=== PATIENT | female | born 1990 | race Caucasian/White ===

== ENCOUNTER → 2018-12-15 10:55 | Outpatient (CLI) | payer OTHER, SELFPAY ==
[2018-12-17 11:41] LABS: HPV Reflexed? NOT INDICATED
== END ==
PROVIDERS: Referring Provider Obstetrics & Gynecology; Visit Provider Obstetrics & Gynecology
DX: Z12.4 Encounter for screening for malignant neoplasm of cervix (principal)
CPT/HCPCS: 87624; 88175; G0145

== ENCOUNTER → 2019-01-13 16:14 | Outpatient (CLI) | payer SELFPAY ==
[2019-01-13 19:50] LABS: Chlamydia Trachomatis by PCR Negative (Negative); Neisserai gonorrhoeae by PCR Negative (Negative); Probe Check PASS; Sample Adequacy Control PASS; Specimen Processing Control PASS
== END ==
PROVIDERS: Visit Provider Obstetrics & Gynecology
DX: Z11.3 Encounter for screening for infections with a predominantly sexual mode of transmission (principal)
CPT/HCPCS: 87491; 87591

== ENCOUNTER → 2019-02-03 16:47 | Outpatient (CLI) | payer SELFPAY ==
[2019-02-03 17:53] LABS: Color, Urine Yellow (Yellow); Glucose, Dipstick Normal (Normal); Ketone-Dipstick Negative (Negative); Leukocyte Esterase-Dipstick 25 /ul (Negative); Nitrite-Dipstick Negative (Negative); Occult Blood-Urine Negative /ul (Negative); Protein-Dipstick Negative (Negative); Urine Bilirubin Dipstick Negative (Negative); Urine Clarity Clear (Clear); Urine Urobilinogen Normal (Normal)
[2019-02-03 18:00] LABS: Absolute Lymphocyte Count 1.81 X10^3/ul (0.83-4.51); Absolute Neutrophil Count 7.4 X10^3/uL (2.0-7.7); Basophil# 0.03 X10^3/uL; Basophil% 0.3 % (0-1); Eosinophil# 0.29 X10^3/uL; Eosinophils% 2.9 % (0-5); Hematocrit 38.1 % (37-47); Hemoglobin 13.1 g/dl (12.0-15.0); Lymphocyte # 1.81 X10^3/ul (4.0); Lymphocyte % 18.1 % (19-41); Mean Corp Hgb Conc 34.4 g/gl (32-36); Mean Corpuscular Hgb 30.2 pg (27.0-32.0); Mean Corpuscular Volume 87.8 fL (81-99); Mean Platelet Vol. 9.7 fl (6.2-12.0); Monocyte# 0.47 X10^3/uL; Monocyte% 4.7 % (0-10); Neutrophil # 7.39 X10^3/uL (2.7-7.7); Neutrophil % 73.8 % (47-70); Platelet Count 223 K/mm3 (150-450); RBC Distribution Width CV 13.2 % (11.6-14.6); RBC Distribution Width SD 42.6 fl (35.1-43.9); Red Blood Count 4.34 M/mm3 (4.2-5.4)
[2019-02-03 18:02] LABS: POSITIVE COUNT NO; POSITIVE DIFFERENTIAL NO; POSITIVE MORPHOLOGY NO
[2019-02-03 18:20] LABS: Amphetamine Urine VISTA NEGATIVE (<1000 ng/mL); Barbiturate Urine VISTA NEGATIVE (< 200 ng/mL); Benzodiazepine Urine VISTA NEGATIVE (< 200 ng/mL); Cocaine Urine VISTA NEGATIVE (< 300 ng/mL); Ecstacy Urine VISTA NEGATIVE (< 500 ng/mL); Methadone Urine VISTA NEGATIVE (< 300 ng/mL); PCP Urine VISTA NEGATIVE (< 25 ng/mL); THC Urine VISTA NEGATIVE (< 50 ng/mL); Vista UDS pH Range 6
[2019-02-03 19:04] LABS: Thyroid Stim Hormone (TSH) 3.27 uIU/mL (0.358-3.74)
[2019-02-03 19:42] LABS: HIV - WCH Non-Reactive (Nonreactive); Rubella IgG 343.2 IU/mL
[2019-02-03 20:22] LABS: Prenatal RPR NONREACTIVE (NONREACTIVE)
[2019-02-06 09:15] LABS: HEPATITIS B SURFACE AG Negative (Negative); Hep C Antibodies <0.1 s/co ratio (0.0-0.9)
[2019-02-07 13:48] LABS: Free T3 2.5 pg/mL (2.18-3.98); T4 Free Direct 0.91 ng/dL (0.76-1.46)
== END ==
PROVIDERS: Visit Provider Obstetrics & Gynecology
DX: Z34.81 Encounter for supervision of other normal pregnancy, first trimester (principal)
CPT/HCPCS: 36415; 80307; 81002; 84439; 84443; 84481; 85025; 86703; 86762; 86803; 87340

== ENCOUNTER → 2019-08-09 15:45 | Outpatient (CLI) | payer SELFPAY | PROVIDERS: Visit Provider Obstetrics & Gynecology | DX: Z34.83 Encounter for supervision of other normal pregnancy, third trimester (principal); Z36.85 Encounter for antenatal screening for Streptococcus B | CPT/HCPCS: 87081 ==

== ENCOUNTER 2019-09-01 08:50 | Outpatient (CLI) | payer SELFPAY ==
[2019-09-01 09:02] VITALS: BMI 25.7
--- NOTE | 2019-09-03 03:31 | OB.TRI.NOTE ---
History of Present Illness Reason For Visit: R/O LABOR Allergies No Known Allergies Allergy (Verified 09/02/19 14:43)
--- NOTE | 2019-09-04 14:49 | OB.TRI.HP_ITS ---
History of Present Illness Date of Service: 09/01/19 Was patient seen by the physician?: No Reason For Visit: R/O LABOR Date of Service: 09/01/19 Final PJ: 09/05/19 Final PJ Source: US <20 weeks Gestational age: 39 Weeks and 3 Days History of Present Illness: This is a late entry for 09/01/19 1100 28yo presents to L&D c/o contractions Allergies No Known Allergies Allergy (Verified 09/02/19 14:43) Physical Exam Cervix Dilation (cm): 1.5 - Exam per RN Station: -3 NST - FHR Rate Baby A Baseline: 135 Variability:: Moderate Accelerations:: 15 x 15 Decelerations:: None NST Reactive:: Yes FHR Category:: Category I Uterine Activity:: Irregular Impression/Plan Assessment: 28yo G1Po at 39w3d gestation r/o labor Cat 1 FHTs No cervical electronic data interchange specialist 2 hours after walking Plan: Discharge home with labor precautions, FM counts, increased rest and fluids
== END 2019-09-01 13:15 | disposition home or self-care (01) ==
LOC: WPOUT 08:56 → OBT 09:15
PROVIDERS: Referring Provider Obstetrics & Gynecology; Visit Provider Obstetrics & Gynecology
DX: O62.9 Abnormality of forces of labor, unspecified (principal); Z3A.39 39 weeks gestation of pregnancy
CPT/HCPCS: 59025; 59050; 99218; G0378

== ENCOUNTER 2019-09-02 14:55 | Inpatient (IN) | payer SELFPAY ==
[2019-09-01 09:02] VITALS: BMI 25.7
[2019-09-02 14:42] VITALS: BMI 25.1
--- NOTE | 2019-09-02 14:46 | HP.PCM_ITS ---
History and Physical Date of Admission: 09/02/19 HISTORY AND PHYSICAL History of this : 28 yo female Ab0 with EDC 09/05/2019 by Ultrasound, presents to Labor and Delivery with CC of contractions, pain. 39 4/7 wk EGA care remarkable for GBS negative. A positive Rubella immune. 1.) Subclinical hypothyroidism - rpt TSH at 28wga 2.) has two cousins with Down Syndrome, Pt has an nephew with unknown developmental delays - special needs/tube feedings, 3.) msAFP and CF testing declined 4.) Plans office and childbirth classes Pertinent Past Medical History: None. Allergies: NKDA Medications: During - No Meds; 28 mg iron-800 mcg tablet Review of Systems: Non-contributory PAST HISTORY: Breast/Ovarian/Colon Cancers - Denies Infections - Chicken pox Illnesses - no serious past illnesses Accidents - None History of Abnormal PAPS - Denies Hospitalizations - see surgery SURGICAL HISTORY: 1. [place] teeth removed 2. 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 Impression /Plan: Intrauterine . 39 4/7 wk EGA G1PO female. Early labor.Admit. Plans epidural. Watch progress, AROM when comfortable.
[2019-09-02] MEDS: Lactated Ringers 500 ML 999 ML IV ×2 (15:10→17:04)
[2019-09-02 15:24] LABS: Absolute Lymphocyte Count 0.97 X10^3/uL (0.83-4.51); Absolute Neutrophil Count 12.4 X10^3/uL (2.0-7.7); Basophil# 0.02 X10^3/uL; Basophil% 0.1 % (0-1); Eosinophil# 0.02 X10^3/uL; Eosinophils% 0.1 % (0-5); Hematocrit 37.1 % (37-47); Hemoglobin 12.9 g/dL (12.0-15.0); Lymphocyte # 0.97 X10^3/ul (4.0); Lymphocyte % 6.9 % (19-41); Mean Corp Hgb Conc 34.8 g/dL (32-36); Mean Corpuscular Hgb 30.4 pg (27.0-32.0); Mean Corpuscular Volume 87.5 fL (81-99); Mean Platelet Vol. 9.8 fl (6.2-12.0); Monocyte# 0.66 X10^3/uL; Monocyte% 4.7 % (0-10); NRBC Flagged by Analyzer 0 % (0-5); Neutrophil # 12.37 X10^3/uL (2.7-7.7); Neutrophil % 87.9 % (47-70); Platelet Count 207 K/mm3 (150-450); RBC Distribution Width CV 13.5 % (11.6-14.6); RBC Distribution Width SD 42.9 fl (35.1-43.9); Red Blood Count 4.24 M/mm3 (4.2-5.4); White Blood Count 14.1 K/mm3 (4.4-11.0)
[2019-09-02] MEDS: Lactated Ringers 1,000 ML 50 ML IV (15:40)
[2019-09-02] MEDS: fentaNYL-bupivacaine (epidural) 100 ML BAG EPIDURAL ×2 (16:40→20:53)
--- NOTE | 2019-09-02 18:16 | PN.OBGYN_ITS ---
Subjective: Comfortable with epidural; states feels dizzy and slightly nauseas when lying on her back, so prefers to lie on her side; requests AROM; at bedside and supportive Objective: AVSS FHTs:120 baseline, mod variability, with accels, no decels UCs: Q 2-5 - Physical Exam General: Alert, Oriented x3, Cooperative HEENT: PERRLA, EOMI Oral: Moist Mucosa Neck: Supple Neurological: Cranial nerves II-XII grossly intact Psych/Mental Status: Normal Affect, Appropriate, Alert and oriented to time, place, person, mood and affect Weight: 146 lb 6.4 oz Body Mass Index (BMI) 25.1 Intake and Output for Last 24 Hours 08/31/19 09/01/19 09/02/19 23:59 23:59 23:59 Intake Total 321.45 / 321.45 Balance 321.45 / 321.45 Laboratory Tests Past 24 Hrs 09/02/19 09/02/19 15:10 15:10 WBC 14.1 H RBC 4.24 Hgb 12.9 Hct 37.1 MCV 87.5 MCH 30.4 MCHC 34.8 RDW Std Deviation 42.9 RDW Coeff of Tabatha 13.5 Plt Count 207 MPV 9.8 Immature Gran % (Auto) 0.300 Neut % (Auto) 87.9 H Lymph % (Auto) 6.9 L [place] % (Auto) 4.7 Eos % (Auto) 0.1 Baso % (Auto) 0.1 Absolute Neuts (auto) 12.4 H Absolute Lymphs (auto) 0.97 Nucleated RBC % 0 Blood Type A POSITIVE Antibody Screen NEGATIVE Medical Necessity - Tobacco Use Smoking Status: Former smoker Assessment/Plan Assessment: 28 yo female Ab0 with EDC 09/05/2019 by Ultrasound, in spontaneous labor at 39 4/7 wk EGA GBS negative Cat 1 FHTs Plan: AROMed for moderate amount of clear fluid Continuous monitoring Close observation Anticipate vaginal delivery
[2019-09-02] MEDS: Ondansetron 4 MG/2 ML Vial IV (23:20)
[2019-09-03] MEDS: Lactated Ringers 500 ML 999 ML IV ×2 (00:32→02:36)
--- NOTE | 2019-09-03 01:46 | PN.OBGYN_ITS ---
Subjective: Comfortable with epidural, feeling pressure and urge to push; bedside and supportive Objective: FHTs: 120 baseline, moderate variability, with accels, no decels UCs: Q 2-3 VE: 10/100/+1 - Physical Exam General: Alert, Oriented x3, Cooperative, No apparent distress HEENT: PERRLA, EOMI Oral: Moist Mucosa Neck: Supple Neurological: Cranial nerves II-XII grossly intact Psych/Mental Status: Normal Affect, Appropriate, Alert and oriented to time, place, person, mood and affect Weight: 146 lb 6.4 oz Body Mass Index (BMI) 25.1 Intake and Output for Last 24 Hours 09/01/19 09/02/19 09/03/19 23:59 23:59 23:59 Intake Total 514.78 / 514.78 573.33 / 573.33 Balance 514.78 / 514.78 573.33 / 573.33 Laboratory Tests Past 24 Hrs 09/02/19 09/02/19 15:10 15:10 WBC 14.1 H RBC 4.24 Hgb 12.9 Hct 37.1 MCV 87.5 MCH 30.4 MCHC 34.8 RDW Std Deviation 42.9 RDW Coeff of Tabatha 13.5 Plt Count 207 MPV 9.8 Immature Gran % (Auto) 0.300 Neut % (Auto) 87.9 H Lymph % (Auto) 6.9 L [place] % (Auto) 4.7 Eos % (Auto) 0.1 Baso % (Auto) 0.1 Absolute Neuts (auto) 12.4 H Absolute Lymphs (auto) 0.97 Nucleated RBC % 0 Blood Type A POSITIVE Antibody Screen NEGATIVE Medical Necessity - Tobacco Use Smoking Status: Former smoker Assessment/Plan Assessment: 28 yo female Ab0 with EDC 09/05/2019 by Ultrasound, in spontaneous labor at 39 57 wk EGA GBS negative 2nd stage labor, pushing with moderate progress with contractions Cat 1 FHTs Plan: Continue pushing Close observation Anticipate vaginal
--- NOTE | 2019-09-03 02:39 | PN.OBGYN_ITS ---
Subjective: Comfortable with epidural; feeling minimal pressure now; has tried several pushing techniques, tug-of-war, etc. Objective: AVSS - afebrile FHTs: 190s, minimal variability UCs: Q 2-3 Cervix: unchanged - Physical Exam Psych/Mental Status: Normal Affect, Appropriate, Alert and oriented to time, place, person, mood and affect Weight: 146 lb 6.4 oz Body Mass Index (BMI) 25.1 Intake and Output for Last 24 Hours 09/01/19 09/02/19 09/03/19 23:59 23:59 23:59 Intake Total 1014.78 / 1014.78 573.33 / 573.33 Balance 1014.78 / 1014.78 573.33 / 573.33 Laboratory Tests Past 24 Hrs 09/02/19 09/02/19 15:10 15:10 WBC 14.1 H RBC 4.24 Hgb 12.9 Hct 37.1 MCV 87.5 MCH 30.4 MCHC 34.8 RDW Std Deviation 42.9 RDW Coeff of Tabatha 13.5 Plt Count 207 MPV 9.8 Immature Gran % (Auto) 0.300 Neut % (Auto) 87.9 H Lymph % (Auto) 6.9 L [place] % (Auto) 4.7 Eos % (Auto) 0.1 Baso % (Auto) 0.1 Absolute Neuts (auto) 12.4 H Absolute Lymphs (auto) 0.97 Nucleated RBC % 0 Blood Type A POSITIVE Antibody Screen NEGATIVE Medical Necessity - Tobacco Use Smoking Status: Former smoker Assessment/Plan Assessment: 28 yo female Ab0 with EDC 09/05/2019 by Ultrasound, in spontaneous labor at 39 5/7 wk EGA GBS negative 2nd stage labor, minimal progress with pushing Cat 2 FHTs Plan: Labor down 500ml LR bolus O2 10L per FM Consult with MD if FHTs elevated >30 minutes
[2019-09-03] MEDS: fentaNYL-bupivacaine (epidural) 100 ML BAG EPIDURAL (02:49)
--- NOTE | 2019-09-03 03:26 | PCM.PN.BLA ---
Progress Note LABOR PROGRESS NOTE Epidural in place. Feeling pressure AFEB VSS IFM: with pushing FHR in 180-190s deep variables with pushing. Now without pushing FHR with increased variability. 150-160s with avg variability, Accels to 180s and quick variable to 120s (less than 10 sec) with some early decelerations. UCs q 2-3 mins EXAM: complete with small caput noted. AGA fetus. Pelvis adequate A/P: 39 4/7 wk Spontaneous labor. Progressed to complete and pushing with intolerance at present to pushing. Labor down. Doesn't lie on her back. Recommend side lying positions rather than high sierra's to assist further descent, rotation.
[2019-09-03] MEDS: Lactated Ringers 1,000 ML 200 ML IV (03:57)
[2019-09-03] MEDS: Oxytocin 30 units/NS 500 ml 30 UNITS/500 ML IV.SOLN 334 UNITS IV (06:25)
--- NOTE | 2019-09-03 07:25 | PCM.OPRPT ---
Vaginal Delivery Maternal Presentation: Active Labor Amniotic Membrane Rupture Type: Artificial Rupture of Membrane time: 09/02/19 at 1803 Amniotic Fluid Description: Clear Final PJ: 09/05/19 Final PJ Source: US <20 weeks Gestational age: 39 Weeks and 6 Days doctor who attended delivery (if requested by OB): Aubrie Mccartney Date of Procedure: 09/03/19 Pre-Operative Diagnosis: IUP at 39w4d active labor Post-Operative Diagnosis: Surgery/ Procedure Performed: Spontaneous Vaginal Delivery Type of Anesthesia: Epidural Description of Procedure: CTSP when she was /+1; she pushed with minimal progress until tachycardia resulted in stopping pushing efforts for an extended period of laboring down; FHTs recovered, and pt began to push again with slow but steady progress, delivering a viable female over an intact perineum, OA to ALFONSO; shoulders followed easily and infant was placed on mother's abdomen, dried, stimulated, bulb-suctioned, cord clamped x 2 and cut by provider; as infant was not initially vigorous, she was handed over to waiting switchboard operator, examined, and quickly returned her mother; APGARS 8/9; placenta delivered spontaneously, Shan mechanism, intact, 3-vessel cord, central insertion. First degree vaginal laceration repaired with 3-0 Vicryl, good hemostasis obtained; Venous cord gases obtained, unable to obtain arterial gases; EBL 250ml Instrument, lap and raytec counts correct x 2 with RN Presentation: Vertex, ALFONSO Placental Delivery Description: Spontaneous Cord Vessel Description: 3 Vessels Cord Gases drawn per routine: ABG - Only able to obtain venous sample Cord Entanglement: None Estimated Blood Loss: 250
--- NOTE | 2019-09-03 07:44 | DCINST_ITS ---
Discharge Diet: No Restrictions Discharge Activity: Return to Normal Activity, No Restrictions, May Drive, May Shower, May Take a Tub Bath Return to work on:: 10/17/19 May resume sexual activity in: 6-8 weeks Weight Bearing Status: Weight bearing as tolerated Lifting Restrictions: Nothing heavier than the baby for two weeks Additional Activity Instructions:: No cleaning, cooking, shopping for two weeks; no long car rides for two weeks Additional Instructions: If you experience any of the following, contact your healthcare provider. * Bleeding that soaks a pad every hour for 2 hours * Fever 100.4 or higher * Unrelieved incision or abdominal pain * Swelling, redness, discharge or bleeding from your incision or episiotomy site * Your incision begins to separate * Problems urinating (including inability to urinate or burning while urinating). * Visual changes * Severe headache * Flu-like symptoms * Pain or redness in one of both of your breasts * Pain, warmth, tenderness or swelling in your legs, especially the calf area * Frequent nausea and vomiting * Symptoms of depression or anxiety If you experience any of the following, call 911 or go to the nearest Emergency Room. * Chest pain * Problems breathing * Seizure activity * Partial or complete paralysis of a body part, slurred speech, weakness or drooping of the face, or a sudden inability to walk or hold your balance Allergies/Adverse Reactions: Allergies No Known Allergies Allergy (Verified 09/02/19 14:43) Medications to take at Discharge Pnv No.95/Ferrous Fum/Folic AC [ Caplet] 1 cap PO DAILY 09/01/19 Please Follow Up With: Jordan Armas MD When: Six weeks for visit Primary Care Physician: Care Physician,No Primary [Primary Care Provider] - Test Results: Test results from this visit will be discussed in further detail at your follow- up appointment, if applicable.
[2019-09-03] MEDS: Ibuprofen 600 MG Tablet PO ×2 (07:48→15:03)
[2019-09-03 12:54] VITALS: BP 113/56; PULSE 68; RESP 16; TEMP 36.3; O2SAT 98
[2019-09-03 16:10] VITALS: BP 109/58; PULSE 82; RESP 16; TEMP 36.6
[2019-09-03 20:46] VITALS: BP 118/71; PULSE 84; RESP 16; TEMP 36.7; O2SAT 98
[2019-09-04] MEDS: Ibuprofen 600 MG Tablet PO ×3 (00:33→18:53)
[2019-09-04 00:54] VITALS: BP 106/55; PULSE 68; RESP 16; TEMP 36.9; O2SAT 98
[2019-09-04 02:43] VITALS: BP 113/59; PULSE 81; RESP 16; TEMP 37.3; O2SAT 98
[2019-09-04 10:00] VITALS: BP 113/59; PULSE 80; RESP 16; TEMP 36.7; O2SAT 97
[2019-09-04] MEDS: Senna/Docusate Sodium 1 Tablet PO (10:19)
--- NOTE | 2019-09-04 13:13 | PCM.PN.OB ---
Subjective: Feeling well, minimal perineal pain, tolerating diet, passing flatus; with difficulty latching, has had consult and is expressing, spoon/cup feeding at this time; spouse bedside, supportive and involved in care/feeding - Physical Exam General: Alert, Oriented x3, Cooperative, No apparent distress HEENT: PERRLA, EOMI Oral: Moist Mucosa Neck: Supple Lungs: Clear to auscultation, Normal air movement Cardiovascular: Regular rate, Regular Rhythm Abdomen: Bowel Sounds Present, Soft, Non Tender, Non-Distended, Passing Flatus Extremities: No edema, Capillary Refill Less than 3 Seconds Skin: No rashes Musculoskeletal: No Tenderness to Palpation of Joints or Extremities Neurological: Cranial nerves II-XII grossly intact, Deep Tendon Reflexes 2+/4 and Symmetrical Psych/Mental Status: Normal Affect, Appropriate, Alert and oriented to time, place, person, mood and affect Vital Signs Temp Pulse Resp BP Pulse Ox 98.1 F 80 16 113/59 L 97 09/04/19 10:00 09/04/19 10:00 09/04/19 10:00 09/04/19 10:00 09/04/19 10:00 Oxygen Delivery Method Room Air Weight: 146 lb 6.4 oz Body Mass Index (BMI) 25.1 Intake and Output for Last 24 Hours 09/02/19 09/03/19 09/04/19 23:59 23:59 23:59 Intake Total 1014.78 / 1014.78 2566.66 / 2566.66 Output Total 850 / 850 Balance 1014.78 / 1014.78 1716.66 / 1716.66 Medical Necessity - Tobacco Use Smoking Status: Former smoker Assessment/Plan Assessment: 39 Weeks and 6 Days, PP Day #1 Normal involution, normal course Plan: Continue routine care DC home tomorrow
[2019-09-04 13:20] VITALS: BP 109/58; PULSE 85; RESP 18; TEMP 37.1
[2019-09-04 20:25] VITALS: BP 110/57; PULSE 78; RESP 16; TEMP 36.8
[2019-09-05 01:10] VITALS: BP 103/59; PULSE 67; RESP 16; TEMP 36.7
[2019-09-05 01:28] LABS: Hematocrit 29.4 % (37-47); Hemoglobin 9.7 g/dL (12.0-15.0); Mean Corpuscular Hgb 30.2 pg (27.0-32.0); Mean Corpuscular Volume 91.6 fL (81-99); Mean Platelet Vol. 9.5 fl (6.2-12.0); Platelet Count 170 K/mm3 (150-450); RBC Distribution Width CV 13.7 % (11.6-14.6); RBC Distribution Width SD 45.5 fl (35.1-43.9); Red Blood Count 3.21 M/mm3 (4.2-5.4); White Blood Count 10.4 K/mm3 (4.4-11.0)
[2019-09-05] MEDS: Ibuprofen 600 MG Tablet PO ×2 (06:19→12:31)
--- NOTE | 2019-09-05 07:29 | PCM.PN.OB ---
Subjective: PPD#2 doing well. Nursing and using nipple espinosa now with good effect. Ibuprofen prn pain No concerns noted. - Physical Exam General: Alert, Oriented x3, Cooperative, No apparent distress HEENT: Atraumatic, EOMI Neck: Supple Abdomen: Soft - Fundus firm NT inferior to umbilicus Neurological: Cranial nerves II-XII grossly intact Vital Signs Temp Pulse Resp BP Pulse Ox 98.0 F 67 16 103/59 L 97 09/05/19 01:10 09/05/19 01:10 09/05/19 01:10 09/05/19 01:10 09/04/19 10:00 Oxygen Delivery Method Room Air Weight: 66.406 kg Body Mass Index (BMI) 25.1 Intake and Output for Last 24 Hours 09/03/19 09/04/19 09/05/19 23:59 23:59 23:59 Intake Total 2566.66 / 2566.66 Output Total 850 / 850 Balance 1716.66 / 1716.66 Laboratory Tests Past 24 Hrs 09/05/19 01:15 WBC 10.4 RBC 3.21 L Hgb 9.7 L Hct 29.4 L MCV 91.6 MCH 30.2 MCHC 33.0 RDW Std Deviation 45.5 H RDW Coeff of Tabatha 13.7 Plt Count 170 MPV 9.5 Medical Necessity - Tobacco Use Smoking Status: Former smoker Assessment/Plan PPD#2 Stable pp. Dischg home today. RTO in 6 wk for pp check, prn sooner.
[2019-09-05 08:16] VITALS: BP 113/67; PULSE 78; RESP 20; TEMP 36.8
[2019-09-05 09:30] VITALS: BP 114/57; PULSE 83; RESP 18; TEMP 36.8
[2019-09-05] MEDS: Senna/Docusate Sodium 1 Tablet PO (09:33)
[2019-09-05 12:33] VITALS: BP 116/61; PULSE 86; RESP 16; TEMP 36.8
== END 2019-09-05 13:30 | disposition home or self-care (01) | DRG 807 ==
LOC: WPOUT 14:57 → WP 15:00
PROVIDERS: Obstetrics & Gynecology; Admitting Provider Advanced Practice Midwife; Referring Provider Advanced Practice Midwife; Visit Provider Advanced Practice Midwife
DX: O99.284 Endocrine, nutritional and metabolic diseases complicating childbirth (principal); Z37.0 Single live birth; O76 Abnormality in fetal heart rate and rhythm complicating labor and delivery; E03.9 Hypothyroidism, unspecified; Z3A.39 39 weeks gestation of pregnancy; Z87.891 Personal history of nicotine dependence; O70.0 First degree perineal laceration during delivery
CPT/HCPCS: 59025; 59050; 85025; 85027; 86850; 86900; 86901; 99218; J7120; G0378; J2405